=== PATIENT | female | born 1975 | race Caucasian/White ===

== ENCOUNTER → 2017-11-22 08:50 | Outpatient (CLI) | payer OTHER, SELFPAY ==
[2017-11-22 10:17] LABS: Alanine Aminotransferase 33 IU/L (9-52); Albumin 4.4 g/dL (3.5-5.0); Albumin Globulin Ratio 1.4 (1.0-2.8); Alkaline Phosphatase 46 U/L (38-126); Aspartate Aminotransferase 28 IU/L (14-36); Bilirubin Total 0.7 mg/dL (0.2-1.3); Bilirubin Unconjugated 0.4 mg/dL (0.0-1.1); Cholesterol 147 mg/dL (140-199); Globulin 3.1 g/dL (1.7-4.1); HDL Cholesterol 61 mg/dL (40-60); HEMOLYSIS < 15 (0-50); LDL Cholesterol Calculated 74 mg/dL (<100); Total Protein 7.5 g/dL (6.3-8.2); Triglycerides 60 mg/dL (35-150)
[2017-11-22 10:28] LABS: LDL Cholesterol Direct 57 mg/dL (<100)
[2017-11-22 10:34] LABS: HCG Quantitative /Beta subunit < 2.39 mIU/mL
== END ==
PROVIDERS: Visit Provider Physician Assistant
DX: L70.0 Acne vulgaris (principal); L81.4 Other melanin hyperpigmentation; Z79.899 Other long term (current) drug therapy
CPT/HCPCS: 36415; 80061; 80076; 83721; 84702

== ENCOUNTER → 2017-12-20 07:57 | Outpatient (CLI) | payer OTHER, SELFPAY ==
[2017-12-20 11:45] LABS: Alanine Aminotransferase 33 IU/L (9-52); Albumin 4.2 g/dL (3.5-5.0); Albumin Globulin Ratio 1.7 (1.0-2.8); Alkaline Phosphatase 44 U/L (38-126); Aspartate Aminotransferase 30 IU/L (14-36); Bilirubin Total 0.5 mg/dL (0.2-1.3); Bilirubin Unconjugated 0.2 mg/dL (0.0-1.1); Cholesterol 126 mg/dL (140-199); Globulin 2.5 g/dL (1.7-4.1); HDL Cholesterol 69 mg/dL (40-60); HEMOLYSIS < 15 (0-50); LDL Cholesterol Calculated 47 mg/dL (<100); Total Protein 6.7 g/dL (6.3-8.2); Triglycerides 48 mg/dL (35-150)
[2017-12-20 11:56] LABS: LDL Cholesterol Direct 52 mg/dL (<100)
[2017-12-20 11:57] LABS: HCG Quantitative /Beta subunit < 2.39 mIU/mL
== END ==
PROVIDERS: Visit Provider Physician Assistant
DX: L70.0 Acne vulgaris (principal); L81.4 Other melanin hyperpigmentation; Z79.899 Other long term (current) drug therapy
CPT/HCPCS: 36415; 80061; 80076; 83721; 84702

== ENCOUNTER → 2018-01-22 10:23 | Outpatient (CLI) | payer OTHER, SELFPAY ==
[2018-01-22 13:56] LABS: Alanine Aminotransferase 34 IU/L (9-52); Albumin 4.6 g/dL (3.5-5.0); Albumin Globulin Ratio 1.6 (1.0-2.8); Alkaline Phosphatase 45 U/L (38-126); Aspartate Aminotransferase 32 IU/L (14-36); Bilirubin Total 0.5 mg/dL (0.2-1.3); Bilirubin Unconjugated 0.2 mg/dL (0.0-1.1); Cholesterol 161 mg/dL (140-199); Globulin 2.9 g/dL (1.7-4.1); HDL Cholesterol 72 mg/dL (40-60); HEMOLYSIS < 15 (0-50); LDL Cholesterol Calculated 73 mg/dL (<100); Total Protein 7.5 g/dL (6.3-8.2); Triglycerides 81 mg/dL (35-150)
[2018-01-22 14:07] LABS: LDL Cholesterol Direct 65 mg/dL (<100)
[2018-01-22 14:13] LABS: HCG Quantitative /Beta subunit < 2.39 mIU/mL
== END ==
PROVIDERS: Visit Provider Physician Assistant
DX: L70.0 Acne vulgaris (principal)
CPT/HCPCS: 36415; 80061; 80076; 83721; 84702

== ENCOUNTER → 2021-07-21 10:28 | Outpatient (CLI) | payer OTHER, SELFPAY ==
--- NOTE | 2021-07-21 | DI.MG.S_ITS ---
BILATERAL DIGITAL SCREENING MAMMOGRAM 3D/2D WITH CAD WITH AUGMENTATION: 07/21/2021 CLINICAL: Routine screening. Baseline exam. No prior exams were available for comparison. The tissue of both breasts is extremely dense, which lowers the sensitivity of mammography. Current study was also evaluated with a Computer Aided Detection (CAD) system. Bilateral breast implants are intact. No significant masses, calcifications, or other findings are seen in either breast. IMPRESSION: NEGATIVE There is no mammographic evidence of malignancy. A 1 year screening mammogram is recommended. This exam was interpreted at Station ID: [id number]. NOTE: For mammograms, a report in lay terms will be sent to the patient. Approximately 15% of breast malignancies will not be visualized mammographically. In the management of a palpable breast mass, a negative mammogram must not discourage biopsy of a clinically suspicious lesion. Electronically Signed By: Xavier meza/henny:07/21/2021 11:29:55 letter sent: Normal Exam ACR BI-RADS Category 1: Negative 3341F
== END ==
PROVIDERS: PCP Obstetrics & Gynecology; Referring Provider Obstetrics & Gynecology; Visit Provider Obstetrics & Gynecology
DX: Z12.31 Encounter for screening mammogram for malignant neoplasm of breast (principal)
CPT/HCPCS: 77063; 77067

== ENCOUNTER → 2021-08-25 13:12 | Outpatient (CLI) | payer OTHER, SELFPAY ==
[2021-08-25 13:58] LABS: Appearance Urine UA CLEAR; Bilirubin Urine UA NEGATIVE (NEGATIVE); Color Urine UA YELLOW; Glucose Urine UA NEGATIVE (Negative); Ketones Urine UA NEGATIVE (NEGATIVE); Leukocyte Esterase Urine UA NEGATIVE (NEGATIVE); Nitrite Urine UA NEGATIVE (Negative); Occult Blood Urine UA NEGATIVE (Negative); Protein Urine UA NEGATIVE (Negative); Specific Gravity Urine UA 1.015 (1.000-1.035); Urobilinogen Urine UA 0.2 E.U./dL (0.2)
[2021-08-25 13:59] LABS: pH Urine UA 5.5 (4.5-8.0)
[2021-08-25 14:05] LABS: Bacteria Urine None Seen; Culture Indicated Urine Cult Not Indicated; RBC Urine None Seen (0-5/HPF); Urine Comments Microscopic Normal; WBC Urine None Seen (0-5/HPF)
== END ==
PROVIDERS: PCP Obstetrics & Gynecology; Referring Provider Obstetrics & Gynecology; Visit Provider Obstetrics & Gynecology
DX: R39.9 Unspecified symptoms and signs involving the genitourinary system (principal)
CPT/HCPCS: 81001

== ENCOUNTER → 2022-08-31 14:19 | Outpatient (CLI) | payer OTHER, SELFPAY ==
--- NOTE | 2022-08-31 | DI.MG.S_ITS ---
BILATERAL DIGITAL SCREENING MAMMOGRAM 3D/2D WITH CAD WITH AUGMENTATION: 08/31/2022 CLINICAL: Patient presents for routine screening. S/P bilateral augmentation. Comparison is made to exam dated: 07/21/2021 mammogram - [facility]. Both breasts are extremely dense, which lowers the sensitivity of mammography (category d />75% glandular tissue). Current study was also evaluated with a Computer Aided Detection (CAD) system. Bilateral breast implants are stable. No significant masses, calcifications, or other findings are seen in either breast. There has been no significant interval change. IMPRESSION: NEGATIVE There is no mammographic evidence of malignancy. A 1 year screening mammogram is recommended. Based on the Tyrer Cuzick model (a risk assessment model) the patient's lifetime risk is 19.7% and her 10 year risk is 3.7%. According to the ACR, ACS, and NCCN guidelines, an annual breast MRI exam along with mammogram is recommended if the patient's lifetime risk is 20% or greater. This exam was interpreted at Station ID: [id number]. NOTE: For mammograms, a report in lay terms will be sent to the patient. Approximately 15% of breast malignancies will not be visualized mammographically. In the management of a palpable breast mass, a negative mammogram must not discourage biopsy of a clinically suspicious lesion. Electronically Signed By: Rebecca solis/henny:08/31/2022 15:09:32 letter sent: Normal Exam ACR BI-RADS Category 1: Negative 3341F
== END ==
PROVIDERS: PCP Obstetrics & Gynecology; Referring Provider Obstetrics & Gynecology; Visit Provider Obstetrics & Gynecology
DX: Z12.31 Encounter for screening mammogram for malignant neoplasm of breast (principal); Z98.82 Breast implant status
CPT/HCPCS: 77063; 77067

== ENCOUNTER → 2023-02-08 09:03 | Outpatient (CLI) | payer OTHER, SELFPAY ==
[2023-02-08 10:19] LABS: Alanine Aminotransferase 31 IU/L (<35); Albumin 4.4 g/dL (3.5-5.0); Albumin Globulin Ratio 1.4 (1.0-2.8); Alkaline Phosphatase 35 U/L (38-126); Aspartate Aminotransferase 32 IU/L (14-36); BUN Creatinine Ratio 18.7 (6-22); Bilirubin Total 0.9 mg/dL (0.2-1.3); Blood Urea Nitrogen 14 mg/dL (7-17); Calcium 8.9 mg/dL (8.4-10.2); Carbon Dioxide 23 mmol/L (22-32); Chloride 106 mmol/L (98-107); Cholesterol 160 mg/dL (140-199); Estimated Glomerular Filt Rate > 60 mL/min (>60); Globulin 3.1 g/dL (1.7-4.1); Glucose 91 mg/dL (70-100); HDL Cholesterol 68 mg/dL (40-60); HEMOLYSIS < 15 (0-50); LDL Cholesterol Calculated 71 mg/dL (<100); Sodium 140 mmol/L (137-145); Total Protein 7.5 g/dL (6.3-8.2); Triglycerides 103 mg/dL (35-150)
[2023-02-14 15:23] LABS: HIV 1 & 2 Ab/Ag 4th Gen Combo NEGATIVE (NEGATIVE); Hep C Virus Ab w/Reflex Quant NEGATIVE s/c (NEGATIVE)
== END ==
PROVIDERS: PCP Nurse Practitioner; Referring Provider Family Medicine; Visit Provider Family Medicine
DX: Z13.1 Encounter for screening for diabetes mellitus (principal); Z83.49 Family history of other endocrine, nutritional and metabolic diseases; Z13.220 Encounter for screening for lipoid disorders; Z11.59 Encounter for screening for other viral diseases
CPT/HCPCS: 36415; 80053; 80061; 84443; 86803; 87389

== ENCOUNTER 2023-05-18 12:34 | Day surgery (SDC) | payer OTHER, SELFPAY ==
[2023-05-18] MEDS: LACTATED RINGERS 1,000 ML 42 ML IV (12:51)
[2023-05-18 12:58] VITALS: BP 125/81; PULSE 73; RESP 17; TEMP 37.1; O2SAT 98
--- NOTE | 2023-05-18 13:26 | PM.OP.COLON ---
Operative Date/Time/Diagnoses Date of procedure: 05/18/23 Time of procedure: 13:26 Pre-op diagnosis: Colon cancer screening
--- NOTE | 2023-05-18 13:27 | PM.HP.1 ---
History of Present Illness History of Present Illness Date Patient Seen: 05/18/23 Time Patient Seen: 13:27 Chief complaint: Colonoscopy Narrative: Yue is a 47-year-old woman who is here for a screening colonoscopy. She has no family history of colon cancer. She does not think she has ever had a colonoscopy before. [facility] [place] Medical History (Updated 05/18/23 @ 13:27 by Mac Anand MD) Family history of Graves' disease Acne Frequent UTI (1997) Abnormal Pap smear of cervix (2000) Surgical History Anesthesia History of breast augmentation (11/2004) Status post delivery (10/2011) Family History Brother No problems noted. Father Age: 73 Skin cancer Mother Age: 73 Sjogren's disease Rheumatoid arthritis Graves disease Grandfather No problems noted. Grandmother No problems noted. Social History household members: spouse and children Smoking Status: Never smoker alcohol intake: current Meds Home Medications and Allergies Home Medications Medication Instructions Recorded Confirmed Type zaleplon 10 mg capsule 10 mg PO BEDTIME PRN Insomnia 02/07/23 05/18/23 History zolpidem 10 mg tablet (Ambien) 10 mg PO BEDTIME 02/07/23 05/18/23 History zolpidem 12.5 mg tablet,extended 12.5 mg PO BEDTIME PRN sleep #10 02/07/23 05/18/23 Rx release,multiphase tabs Allergies Allergy/AdvReac Type Severity Reaction Status Date / Time No Known Drug Allergies Allergy Verified 05/18/23 12:47 Exam Vital Signs (past 8 hours): - 05/18/23 12:58 Temperature 98.8 F Pulse Rate 73 Respiratory Rate 17 Blood Pressure 125/81 Pulse Oximetry 98 Oxygen Delivery Method Room Air Oxygen Delivery Method Room Air Const General: healthy appearing Assessment & Plan Assessment and plan (1) Colon cancer screening: Status: Acute Plan We reviewed the risks and benefits of colonoscopy for colon cancer screening and she would like to proceed.
--- NOTE | 2023-05-18 14:03 | PM.OP.COLON ---
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 The patient was connected to monitoring devices. A time-out was performed. Sedation was administered. Once the patient was adequately sedated, a digital rectal exam was performed and was normal. The scope was then inserted and advanced. Colon was somewhat tortuous. With the aid of some abdominal pressure we got to the cecum where the appendiceal orifice was identified and photographed. The scope was then slowly withdrawn over greater than 6 minutes. The mucosa was thoroughly inspected. No polyps or other abnormalities were found. The scope was retroflexed in the rectum. Some mild internal hemorrhoids were noted. No other abnormalities were seen. The scope was straightened and removed. The patient was awakened and brought to recovery. Scope withdrawal time: 8 minutes Sedation time: 26 minutes EBL: 0 Findings: Internal hemorrhoids Post-procedure Recommendations: Colonoscopy in 10 years Disposition: PACU
[2023-05-18 14:05] VITALS: BP 113/79; PULSE 68; RESP 16; TEMP 36.2; O2SAT 98
[2023-05-18 14:09] VITALS: BP 112/74; PULSE 61; RESP 16; O2SAT 97
[2023-05-18 14:15] VITALS: BP 111/74; PULSE 70; RESP 12; O2SAT 98
[2023-05-18 14:18] VITALS: BP 121/73; PULSE 60; RESP 16; O2SAT 98
== END 2023-05-18 14:25 | disposition home or self-care (01) ==
PROVIDERS: PCP Nurse Practitioner; Referring Provider Surgery; Visit Provider Surgery
PROC: 0DJD8ZZ Inspection of Lower Intestinal Tract, Via Natural or Artificial Opening Endoscopic (ICD-10-PCS; CPT 45378; principal; 2023-05-18 13:30)
DX: Z12.11 Encounter for screening for malignant neoplasm of colon (principal); K64.8 Other hemorrhoids
CPT/HCPCS: 45378; J2704

== ENCOUNTER → 2023-08-07 11:46 | Outpatient (CLI) | payer OTHER, SELFPAY | PROVIDERS: PCP Nurse Practitioner; Visit Provider Nurse Practitioner | DX: N89.8 Other specified noninflammatory disorders of vagina (principal) | CPT/HCPCS: 87070; 87205 ==

== ENCOUNTER → 2023-09-06 13:06 | Outpatient (CLI) | payer OTHER, SELFPAY ==
--- NOTE | 2023-09-06 13:07 | DI.MG.S_ITS ---
BILATERAL DIGITAL SCREENING MAMMOGRAM 3D/2D WITH CAD WITH AUGMENTATION: 09/06/2023 CLINICAL: Routine screening. Comparison is made to exams dated: 08/31/2022 mammogram and 07/21/2021 mammogram - [facility]. Both breasts are extremely dense, which lowers the sensitivity of mammography (category d />75% glandular tissue). Current study was also evaluated with a Computer Aided Detection (CAD) system. Bilateral breast implants are stable. No significant masses, calcifications, or other findings are seen in either breast. There has been no significant interval change. IMPRESSION: NEGATIVE There is no mammographic evidence of malignancy. A 1 year screening mammogram is recommended. Based on the Tyrer Cuzick model (a risk assessment model) the patient's lifetime risk is 19.6% and her 10 year risk is 3.9%. According to the ACR, ACS, and NCCN guidelines, an annual breast MRI exam along with mammogram is recommended if the patient's lifetime risk is 20% or greater. This exam was interpreted at Station ID: [id number]. NOTE: For mammograms, a report in lay terms will be sent to the patient. Approximately 15% of breast malignancies will not be visualized mammographically. In the management of a palpable breast mass, a negative mammogram must not discourage biopsy of a clinically suspicious lesion. Electronically Signed By: Josue hayden/henny:09/06/2023 17:35:07 letter sent: Normal Exam ACR BI-RADS Category 1: Negative 3341F
== END ==
PROVIDERS: PCP Nurse Practitioner; Referring Provider Nurse Practitioner; Visit Provider Nurse Practitioner
DX: Z12.31 Encounter for screening mammogram for malignant neoplasm of breast (principal); R92.343 Mammographic extreme density, bilateral breasts
CPT/HCPCS: 77063; 77067

== ENCOUNTER → 2023-12-12 12:09 | Outpatient (CLI) | payer BC, SELFPAY ==
[2023-12-12 13:59] LABS: Testosterone 40.1 ng/dL (5.71-77.0)
== END ==
PROVIDERS: PCP Nurse Practitioner; Referring Provider Nurse Practitioner; Visit Provider Nurse Practitioner
DX: R68.82 Decreased libido (principal)
CPT/HCPCS: 84403

== ENCOUNTER → 2023-12-22 10:45 | Outpatient (CLI) | payer BC, SELFPAY | PROVIDERS: PCP Nurse Practitioner; Referring Provider Nurse Practitioner; Visit Provider Nurse Practitioner | DX: Z79.890 Hormone replacement therapy (principal) | CPT/HCPCS: 36415; 84402; 84403 ==

== ENCOUNTER 2024-01-05 07:30 | Day surgery (SDC) | payer BC, SELFPAY ==
[2024-01-02 12:21] VITALS: BMI 20.6
--- NOTE | 2024-01-05 | PATH_ITS ---
[facility] Accession Number: [id number] No. of containers..01 Tissue . 01 Material submitted: . foot - RIGHT MT4 (FOOT) . 01 Clinical history: . RIGHT MT4 (FOOT) - STITCH IS DISTAL . 01 Diagnosis: RIGHT MT4 FOOT, EXCISION: Verruca vulgaris, irritated and inflamed. MRV 01/08/2024 1621 Local . 01 Electronically signed: . Nia Salinas MD, Dermatopathologist NPI- [id number] . 01 Gross description: . The specimen is received in formalin labeled with two patient identifiers and right MT 4 mass (foot), and consists of a 1.1 x 0.5 cm elliptical skin excised to the depth of 0.2 cm. The skin is oriented with a stitch designated as distal. This was placed in the 6 o'clock position; 12-3 o'clock is inked blue, 3-6 o'clock is inked orange, and the 6-9-12 o'clock is inked green. The surface of the skin is castorena-white and granular with a blue linear inked line. The specimen is serially sectioned and entirely submitted as follows: A1: Tips. A2: Mid cross-sections. ([id number]) /СВЕТЛАНА 01/06/2024 2314 Local . 01 Pathologist provided ICD-10: B07.9 . 01 CPT . 441824 Specimen Comment: A courtesy copy of this report has been sent to [phone] Performed at: [address] [address], [place], [place] [id number] MD Juve Puri MD Phone: [phone]
[2024-01-05 07:56] VITALS: BMI 21.6
[2024-01-05 08:18] VITALS: BP 122/76; PULSE 62; RESP 17; TEMP 36.9; O2SAT 100
[2024-01-05] MEDS: LACTATED RINGERS 1,000 ML 42 ML IV (08:21)
[2024-01-05] MEDS: CEFAZOLIN 2 GM/100 ML PREMIX 100 ML IV (09:04)
--- NOTE | 2024-01-05 09:27 | SUR.OPER ---
Supine on padded OR bed, head on pillow, arms secured on padded arm boards at <90 degrees abduction, legs uncrossed, safety belt at thigh, tape over blanket over lower legs.
[2024-01-05] MEDS: SILVER SULFADIAZINE 1% CREAM 25 GM 1 APPLIC TOP (09:36)
[2024-01-05] MEDS: LIDOCAINE 2% W/EPI INJ 20 ML VIAL INJ (09:37)
[2024-01-05] MEDS: BUPIVACAINE 0.5% (PF) 10 ML VIAL INJ (09:38)
[2024-01-05 09:50] VITALS: BP 97/58; PULSE 65; RESP 17; TEMP 36.2; O2SAT 100
[2024-01-05 09:55] VITALS: BP 84/56; PULSE 70; RESP 11; O2SAT 98
[2024-01-05 10:00] VITALS: BP 103/66; PULSE 71; RESP 15; O2SAT 99
--- NOTE | 2024-01-05 10:02 | PM.PREOP ---
Pre-operative Note Interval Note History & Physical reviewed/Exam performed by Physician: Yes Changes to H&P: No H&P completed within 30 days and has changed as indicated here:: Please note time of note is after the procedure as computer access was unavailable per Computer Support Team.
--- NOTE | 2024-01-05 10:04 | P.OP_ITS ---
Operative Date/Time/Diagnoses Date of procedure: 01/05/24 Time of procedure: 08:00 Pre-op diagnosis: Right fourth metatarsal head painful plantar wart versus scar with keratoderma. Post-op diagnosis: same Procedure & Clinicians Procedure: Right fourth metatarsal head excision and currettage suspected plantar wart Same procedure as scheduled: Yes Indications: 48 yo female with ongoing painful right fourth metatarsal head plantar thick callused and verrucoid lesion to the foot. Conservative measured failed to reduce the lesion and alleviate the pain and she wished to have surgical intervention at this time. We spoke of the risks, potential complications, alternatives, expected outcomes. Consent was reviewed and no contraindications to the procedure at this time. Surgeon: Germania Herman Click Yes if Unassisted: Yes Anesthesia Type: General Operative Notes Closure Type: non-primary Specimen(s): other (Right MT4 head soft tissue skin mass central aspect sent to Pathology for identification. Distal tip tagged with suture.) Estimated Blood Loss (mL): 5 Blood products transfused: none Procedure in detail: Patient was brought to the operating room and placed on the operating table in the supine position. Time out was performed. After induction of general anesthesia, the right foot area was prepped and local anesthesia was used to infiltrate around the skin mass on the plantar right foot using the recorded injectables. The right foot and ankle were prepped and draped in the usual aseptic manner. After a check of anesthesia, a 15 blade was used to pare down the overlying hyperkeratotic tissue of the suspected verrucoid lesion under the fourth metatarsal head. There really did not appear to be significant pinpoint capillary bleeding as the suspected verrucoid tissue was removed. As I got to the base, there was a change in the tissue which had elements of chronic callusing noted. Measurement of this lesion was approximately 1.5 cm x 1.2 cm. A sliver of center of the tissue was excised full-thickness, and the distal aspect tagged with a suture. This was passed from the field and send to Pathology for identification. With the shape and large diameter of the chronic lesion noted, it would have been more difficult to consider healing by primary closure and since the suspic ion was also higher for element of verruca, a curette was used to core out the central portion down to the deep fascia. Next cautery was performed to the center and surrounding edge of the skin and terrazas of the suspected verruca. This was then curettaged, checked, and recauterized. This was done in a cyclic manner until it was noticeably back to clean and healthy bleeding tissue without skin line interruption. Margin was taken on all sides of the original lesion to make sure to include all elements of the verrucoid tissue. Care was taken to also use suction during the process for any aerosol particles from the cautery. The area was irrigated with copious amounts of normal sterile saline. The foot was then dressed with Silvadene, Xeroform, gauze, Kerlix, PATRICK, stockinette, and placed in a postoperative shoe. Vascular status remained intact to the foot throughout the procedure. Patient was transferred to the PACU with vital signs stable. Complications: none Post-operative Condition: stable Disposition: PACU Plan for aftercare: Following a period of postoperative monitoring, the patient will be discharged to home on written and oral postoperative instructions including keeping the dressing dry and intact until first post op visit, attempt to place only minimal weight on the foot or at the most, 50% weight to the surgical foot, until wound has shown significant healing which is generally around the 2 1/2 -3 wk jordy. Elevating the foot when seated home. DVT prevention techniques have been reviewed.
[2024-01-05 10:10] VITALS: BP 99/64; PULSE 67; RESP 14; O2SAT 100
[2024-01-05 10:12] VITALS: BP 107/77; PULSE 75; RESP 15; TEMP 36.4; O2SAT 98
== END 2024-01-05 10:40 | disposition home or self-care (01) ==
PROVIDERS: PCP Nurse Practitioner; Referring Provider Podiatrist; Visit Provider Podiatrist
PROC: (CPT 17110; principal; 2024-01-05 09:00)
DX: B07.0 Plantar wart (principal)
CPT/HCPCS: 17110; J0690; J1100; J1885; J2250; J2405; J2704

== ENCOUNTER → 2024-04-02 10:07 | Outpatient (CLI) | payer BC, SELFPAY ==
[2024-04-02 15:43] LABS: Testosterone 290 ng/dL (5.71-77.0)
[2024-04-09 10:36] LABS: Percent Free Testosterone 2.45 % (0.50-2.80); Testosterone Free 8.35 ng/dL (0.10-0.85)
== END ==
PROVIDERS: PCP Family Medicine; Referring Provider Family Medicine; Visit Provider Family Medicine
DX: R68.82 Decreased libido (principal); Z79.890 Hormone replacement therapy
CPT/HCPCS: 36415; 84402; 84403

== ENCOUNTER → 2024-05-01 07:49 | Outpatient (CLI) | payer BC, SELFPAY ==
[2024-05-01 09:51] LABS: Testosterone 98.3 ng/dL (5.71-77.0)
== END ==
PROVIDERS: PCP Family Medicine; Referring Provider Family Medicine; Visit Provider Family Medicine
DX: R68.82 Decreased libido (principal); Z79.890 Hormone replacement therapy
CPT/HCPCS: 36415; 84402; 84403

== ENCOUNTER → 2024-08-29 07:51 | Outpatient (CLI) | payer BC, SELFPAY ==
[2024-08-29 08:08] LABS: Add Manual Diff / Slide Review NO; Basophils Absolute Auto 100 /uL (0-100); Basophils Percent Auto 1.2 % (0-2); Eosinophils Absolute Auto 100 /uL (0-450); Eosinophils Percent Auto 3.3 % (2-4); Hematocrit 43.7 % (36-46); Hemoglobin 14.8 g/dL (12.0-16.0); Lymphocytes Absolute Auto 1700 /uL (1100-4500); Lymphocytes Percent Auto 42.6 % (25-40); Mean Corpuscular HGB Conc 33.8 % (30-36); Mean Corpuscular Volume 94.5 fL (80-100); Monocytes Absolute Auto 300 /uL (0-900); Monocytes Percent Auto 8.4 % (3-14); Neutrophils Absolute Auto 1800 /uL (1500-7000); Neutrophils Percent Auto 44.5 % (50-75); Platelet Count 211 X10^3/uL (150-400); Red Blood Cell Count 4.63 X10^6/uL (4.0-5.2); Red Cell Distribution Width 13.4 % (11.6-14.8); White Blood Cell Count 4.1 X10^3/uL (4.5-11.0)
[2024-08-29 08:21] LABS: Hemoglobin A1C% w Est Avg Glu 4.8 % (4.0-6.0)
[2024-08-29 08:44] LABS: Alanine Aminotransferase 23 IU/L (<35); Albumin 4.6 g/dL (3.5-5.0); Alkaline Phosphatase 40 U/L (38-126); Aspartate Aminotransferase 29 IU/L (14-36); BUN Creatinine Ratio 20.4 (6-22); Bilirubin Total 1.1 mg/dL (0.2-1.3); Blood Urea Nitrogen 20 mg/dL (7-17); Calcium 9.4 mg/dL (8.4-10.2); Carbon Dioxide 26 mmol/L (22-32); Chloride 104 mmol/L (98-107); Cholesterol 169 mg/dL (140-199); Estimated Glomerular Filt Rate > 60 mL/min (>60); Globulin 2.3 g/dL (1.7-4.1); Glucose 98 mg/dL (70-100); HDL Cholesterol 90 mg/dL (40-60); HEMOLYSIS < 15 (0-50); LDL Cholesterol Calculated 68 mg/dL (<100); Sodium 137 mmol/L (137-145); Total Protein 6.9 g/dL (6.3-8.2); Triglycerides 55 mg/dL (35-150)
[2024-08-29 09:00] LABS: Vitamin D 25 Hydroxy (D3) 18.5 ng/mL (30.0-100.0)
[2024-08-29 09:16] LABS: Testosterone 210 ng/dL (5.71-77.0)
== END ==
PROVIDERS: PCP Family Medicine; Referring Provider Family Medicine; Visit Provider Family Medicine
DX: Z13.9 Encounter for screening, unspecified (principal); Z13.1 Encounter for screening for diabetes mellitus; Z13.21 Encounter for screening for nutritional disorder; E78.00 Pure hypercholesterolemia, unspecified; D70.9 Neutropenia, unspecified; Z79.890 Hormone replacement therapy
CPT/HCPCS: 36415; 80053; 80061; 82306; 83036; 84402; 84403; 85025

== ENCOUNTER → 2024-09-12 16:01 | Outpatient (CLI) | payer BC, SELFPAY ==
--- NOTE | 2024-09-12 16:05 | DI.MG.S_ITS ---
MM screening mammo BI: 09/12/2024. BI-RADS: 2 CLINICAL: 48-year old female for bilateral screening mammogram. Tyrer-Cuzick lifetime risk of 16.3%. No personal or first-degree family history of breast cancer. The patient has bilateral implants. PRIOR EXAMS 09/06/2023, 08/31/2022, 07/21/2021. MAMMOGRAPHY TECHNIQUE: 2D and 3D (tomosynthesis) digital mammographic views obtained, with additional images as needed for full coverage. Current study was also evaluated with a Computer Aided Detection (CAD) system. DENSITY D. The breasts are extremely dense, which lowers the sensitivity of mammography. IMPLANTS Breast implants present. MAMMOGRAPHY FINDINGS Bilateral: There are no suspicious masses, calcifications, or other findings in the breast. IMPRESSION: * No evidence of malignancy with benign findings. RECOMMENDATIONS Bilateral * Annual screening mammography. OVERALL ASSESSMENT CATEGORY BI-RADS-2: Benign. The [employer] recommends annual screening mammography beginning at age 40 for women with average risk of breast cancer. ELECTRONICALLY SIGNED: Erin Gillespie M.D. on 09/13/2024 at 12:00:11 PM PT Interpreting Station ID: [id number]
[2024-09-12 17:59] LABS: Follicle Stimulating Hormone 5.62 mIU/mL
[2024-09-17 21:08] LABS: Estrogen 120 pg/mL (.)
== END ==
PROVIDERS: PCP Family Medicine; Referring Provider Family Medicine; Visit Provider Family Medicine
DX: Z12.31 Encounter for screening mammogram for malignant neoplasm of breast (principal); Z98.82 Breast implant status; R92.343 Mammographic extreme density, bilateral breasts; R68.82 Decreased libido
CPT/HCPCS: 36415; 77063; 77067; 82672; 83001